=== PATIENT | male | born 1960 | race Caucasian/White ===

== ENCOUNTER 2018-12-31 21:03 | Emergency (ER) | payer OTHER ==
[2018-12-31 21:23] VITALS: BP 110/70; PULSE 82; TEMP 98.8; BMI 24.3
--- NOTE | 2018-12-31 22:01 | PDOC ---
History of Present Illness - General History Source: Patient Exam Limitations: Intoxication - History of Present Illness Initial Comments: 12/31/18 21:38 58M with unknown PMH presents to the ER intoxicated. Pt admits to head trauma but denies drinking. However, he admits to drinking daily. Denies any acute complaints. <Morris Davis - Last Filed: 12/31/18 23:34> <Fredi Waggoner - Last Filed: 01/01/19 00:11> - General Chief Complaint: Alcohol intoxication Stated Complaint: INTOX Time Seen by Provider: 12/31/18 21:20 Past History - Suicide/Smoking/Psychosocial Hx Smoking History: Never smoked Have you smoked in the past 12 months: No Information on smoking cessation initiated: No Hx Alcohol Use: Yes Drug/Substance Use Hx: No <Morris Davis - Last Filed: 12/31/18 23:34> <Fredi Waggoner - Last Filed: 01/01/19 00:11> - Past Medical History Allergies/Adverse Reactions: Allergies Allergy/AdvReac Type Severity Reaction Status Date / Time No Allergy Information Allergy Verified 12/31/18 21:23 Available Home Medications: Ambulatory Orders Unobtainable 12/31/18 Review of Systems - Review of Systems Able to Perform ROS?: No (intox) Is the patient limited Sami proficient: No <Morris Davis - Last Filed: 12/31/18 23:34> *Physical Exam - Vital Signs Last Vital Signs Temp Pulse Resp BP Pulse Ox 98.8 F 82 18 110/70 97 12/31/18 21:03 12/31/18 21:03 12/31/18 21:03 12/31/18 21:03 12/31/18 21:03 - Physical Exam Comments: 12/31/18 21:39 GENERAL: Well developed, well nourished. Asleep but arousable. No acute distress. EtOH on breath. Disheveled. HEENT: Normocephalic, abrasion over forehead. Hearing grossly normal. Moist mucous membranes. PERRLA, EOMI. No conjunctival pallor. Sclera are non-icteric. NECK: Supple. Full ROM. No JVD. CARDIOVASCULAR: Regular rate and rhythm. No murmurs, rubs, or gallops. PULMONARY: No evidence of respiratory distress. Lungs clear to auscultation bilaterally. No wheezing, rales or rhonchi. ABDOMINAL: Soft. Non-tender. Non-distended. No rebound or guarding. MUSCULOSKELETAL: Normal range of motion at all joints. No bony deformities or tenderness. EXTREMITIES: No cyanosis. No clubbing. No edema. No calf tenderness or swelling. SKIN: Warm and dry. Normal capillary refill. No rashes. No jaundice. NEUROLOGICAL: Asleep but arousable. Cranial nerves 2-12 grossly intact. Normal speech. PSYCHIATRIC: Cooperative when awoken to vocal or tactica stimuli. Poor eye contact. <Morris Davis - Last Filed: 12/31/18 23:34> - Vital Signs Last Vital Signs Temp Pulse Resp BP Pulse Ox 98.8 F 82 18 110/70 97 12/31/18 21:03 12/31/18 21:03 12/31/18 21:03 12/31/18 21:03 12/31/18 21:03 <Fredi Waggoner - Last Filed: 01/01/19 00:11> ED Treatment Course - LABORATORY CBC & Chemistry Diagram: 12/31/18 22:10 12/31/18 22:10 - RADIOLOGY Radiology Studies Ordered: Category Date Time Status CERVICAL SPINE CT W/O CONTR [CT] Stat CT Scan 12/31/18 21:[address] WITHOUT CONTRAST [CT] Stat CT Scan 12/31/18 21:26 Ordered <Morris Davis - Last Filed: 12/31/18 23:34> - LABORATORY CBC & Chemistry Diagram: 12/31/18 22:10 12/31/18 22:10 - ADDITIONAL ORDERS Additional order review: Laboratory Results 12/31/18 22:10 Sodium 141 Potassium 3.5 Chloride 108 H Carbon Dioxide 26 Anion Gap 7 L BUN 10 Creatinine 0.5 L Creat Clearance w eGFR 169.62 Random Glucose 118 H Calcium 8.3 L Total Bilirubin 0.3 AST 47 H ALT 32 Alkaline Phosphatase 83 Creatine Kinase 214 Creatine Kinase Index 4.1 CK-MB (CK-2) 8.9 H Troponin I < 0.02 Total Protein 5.9 L Albumin 2.8 L Alcohol, Quantitative 215.8 H 12/31/18 22:10 RBC 4.11 MCV 98.9 H MCHC 33.4 RDW 14.9 MPV 7.3 L Neutrophils % 56.6 Lymphocytes % 28.5 Monocytes % 10.5 H Eosinophils % 3.5 Basophils % 0.9 <Fredi Waggoner - Last Filed: 01/01/19 00:11> Medical Decision Making - Medical Decision Making 12/31/18 22:01 58M with unknown PMH found by bus stop by EMS and brought into our ED. The patient has never been to our ED. PE shows abrasion over forehead and pt admits to falling. Will r/o bleed/fracture with CT head and c-spine. Because he is new to our facility, will order bloodwork and EKG. Pending labs and imaging. Pt is asleep and comfortable. 12/31/18 23:22 CTH and c-spine negative. Trop negative. EtOH level 215. Pt asleep comfortably. 12/31/18 23:59 Pt signed out to Dr. Casey for further evaluation. <Morris Davis - Last Filed: 12/31/18 23:34> *DC/Admit/Observation/Transfer <Morris Davis - Last Filed: 12/31/18 23:34> <Fredi Waggoner - Last Filed: 01/01/19 00:11> Diagnosis at time of Disposition: Alcohol intoxication - Discharge Dispostion Disposition: ELOPED Condition at time of disposition: Fair
[2018-12-31 22:38] LABS: BASO % 0.9 % (0-2.0); EOS % 3.5 % (0-4.5); HEMATOCRIT 40.7 % (35.4-49); HEMOGLOBIN 13.6 GM/dL (11.7-16.9); LYMPH % 28.5 % (8-40); MCH 33.1 pg (25.7-33.7); MCHC 33.4 g/dl (32.0-35.9); MEAN CELL VOLUME 98.9 fl (80-96); MEAN PLT VOLUME 7.3 fl (7.5-11.1); MONO % 10.5 % (3.8-10.2); NEUT % 56.6 % (42.8-82.8); PLATELET COUNT 206 K/MM3 (134-434); RBC 4.11 M/mm3 (4.00-5.60); RDW 14.9 % (11.9-15.9); WHITE BLOOD COUNT 5.8 K/mm3 (4.0-10.0)
[2018-12-31 22:50] LABS: ALBUMIN 2.8 g/dl (3.4-5.0); ALK PHOS 83 U/L (45-117); ANION GAP 7 MMOL/L (8-16); BILIRUBIN,TOTAL 0.3 mg/dL (0.2-1); BLOOD UREA NITROGEN 10 mg/dL (7-18); CALCIUM 8.3 mg/dL (8.5-10.1); CHLORIDE 108 mmol/L (98-107); CO2 26 mmol/L (21-32); CREATININE 0.5 mg/dL (0.55-1.3); GLUCOSE,RANDOM 118 mg/dL (74-106); POTASSIUM 3.5 mmol/L (3.5-5.1); SGOT/AST 47 U/L (15-37); SGPT/ALT 32 U/L (13-61); SODIUM 141 mmol/L (136-145); TOT PROT 5.9 g/dl (6.4-8.2)
--- NOTE | 2019-01-01 00:11 | PDOC ---
Documentation entered by Becki Colon SCRIBE, acting as scribe for Dena Ames MD. Dena Ames MD: This documentation has been prepared by the Darlene gonzalez Daisy, SCRIBE, under my direction and personally reviewed by me in its entirety. I confirm that the documentation accurately reflects all work, treatment, procedures, and medical decision making performed by me. Attending Attestation - Resident Resident Name: Morris Davis - ED Attending Attestation I have performed the following: I have examined & evaluated the patient, The case was reviewed & discussed with the resident, I agree w/resident's findings & plan - HPI HPI: 12/31/18 21:34 Patient is a 58YOM who presents to the ER s/p fall. Patient reports head trauma and small abrasion. - Physicial Exam PE: 12/31/18 23:40 Agree with resident's exam. - Medical Decision Making 12/31/18 23:59 this 58 yo male was BIBA after being found at the bus stop intoxicated. Pt is unable to give history ct scan head no acute intracranial pathology,no mass,no infarct,no bleed, no skull fracture ct scan c spine ; no fracture,no subluxation 01/01/19 00:01 troponin is negative ekg nsr @ 64 bpm cbc unremarkable chemistries -normal renal function, normal t bili etoh level 215, pt is currently sleeping plan when pt is more alert will discharge 01/01/19 00:10 pt eloped
--- NOTE | 2019-01-01 14:35 | EKG ---
Test Reason : Blood Pressure : / mmHG Vent. Rate : 060 BPM Atrial Rate : 060 BPM P-R Int : 164 ms QRS Dur : 114 ms QT Int : 422 ms P-R-T Axes : 056 -69 053 degrees QTc Int : 422 ms NORMAL SINUS RHYTHM LEFT ANTERIOR FASCICULAR BLOCK ANTEROSEPTAL INFARCT , AGE UNDETERMINED VOLTAGE CRITERIA FOR LEFT VENTRICULAR HYPERTROPHY ABNORMAL ECG NO PREVIOUS ECGS AVAILABLE Confirmed by MD JOANN, NKECHI ([id number]) on 01/01/2019 2:34:45 PM Referred By: Confirmed By:NKECHI DAVID MD
== END 2018-12-31 23:45 | disposition left against medical advice (07) ==
LOC: JER 21:03
DX: F10.120 Alcohol abuse with intoxication, uncomplicated (principal); Y90.7 Blood alcohol level of 200-239 mg/100 ml; S00.81XA Abrasion of other part of head, initial encounter; W18.39XA Other fall on same level, initial encounter; Y93.89 Activity, other specified; Y92.488 Other paved roadways as the place of occurrence of the external cause; Y99.8 Other external cause status
CPT/HCPCS: 36415; 70450-TC; 72125-TC; 80053; 80307; 82550; 82553; 84484; 85025; 93005; 93010; 99282-25

== ENCOUNTER 2019-01-01 11:47 | Emergency (ER) | payer SELFPAY ==
[2019-01-01 11:53] VITALS: BP 120/80; PULSE 85; TEMP 98.1; BMI 23.0
[2019-01-01] MEDS ORDERED: chlordiazePOXIDE HCL 25 MG CAPSULE PO ONE (12:11)
[2019-01-01] MEDS ORDERED: chlordiazePOXIDE HCL 25 MG CAPSULE ONE (12:28)
[2019-01-01 12:46] LABS: BASO % 0.9 % (0-2.0); EOS % 2.6 % (0-4.5); HEMATOCRIT 41.6 % (35.4-49); HEMOGLOBIN 13.7 GM/dL (11.7-16.9); LYMPH % 17.9 % (8-40); MCH 32.6 pg (25.7-33.7); MEAN CELL VOLUME 98.8 fl (80-96); MEAN PLT VOLUME 7.4 fl (7.5-11.1); MONO % 10.6 % (3.8-10.2); PLATELET COUNT 218 K/MM3 (134-434); RBC 4.21 M/mm3 (4.00-5.60); WHITE BLOOD COUNT 6.3 K/mm3 (4.0-10.0)
[2019-01-01 12:54] LABS: URINE APPEARANCE CLEAR; URINE BILIRUBIN NEGATIVE (NEGATIVE); URINE COLOR YELLOW; URINE GLUCOSE (UA) NEGATIVE (NEGATIVE); URINE KETONE NEGATIVE (NEGATIVE); URINE LEUK ESTERASE NEGATIVE (NEGATIVE); URINE NITRITE NEGATIVE (NEGATIVE); URINE PROTEIN NEGATIVE (NEGATIVE)
[2019-01-01 13:13] LABS: ALBUMIN 3.1 g/dl (3.4-5.0); ALK PHOS 87 U/L (45-117); ANION GAP 12 MMOL/L (8-16); BILIRUBIN,TOTAL 0.4 mg/dL (0.2-1); BLOOD UREA NITROGEN 13 mg/dL (7-18); CALCIUM 8.6 mg/dL (8.5-10.1); CHLORIDE 104 mmol/L (98-107); CO2 27 mmol/L (21-32); CREATININE 0.6 mg/dL (0.55-1.3); GLUCOSE,RANDOM 79 mg/dL (74-106); POTASSIUM 3.9 mmol/L (3.5-5.1); SGOT/AST 46 U/L (15-37); SGPT/ALT 33 U/L (13-61); SODIUM 143 mmol/L (136-145); TOT PROT 6.3 g/dl (6.4-8.2)
[2019-01-01 13:22] LABS: COCAINE, UR NEGATIVE ng/ml (CUTOFF=300); METHADONE, UR NEGATIVE ng/ml (CUTOFF=300); OPIATES, URI NEGATIVE ng/ml (CUTOFF=300); PHENCYCLIDINE,URINE NEGATIVE ng/ml (CUTOFF=25); URINE AMPHETAMINES NEGATIVE ng/ml (CUTOFF=500); URINE BARBITURATES NEGATIVE ng/ml (CUTOFF=200)
[2019-01-01 13:34] LABS: URINE BENZODIAZEPINES POSITIVE ng/ml (CUTOFF=200)
--- NOTE | 2019-01-01 13:35 | PDOC ---
Documentation entered by Dorothea Jean Baptiste SCRIBE, acting as scribe for Vinny Palacios MD. Vinny Palacios MD: This documentation has been prepared by the Markel gonzalez Amanda, SCRIBE, under my direction and personally reviewed by me in its entirety. I confirm that the documentation accurately reflects all work, treatment, procedures, and medical decision making performed by me. History of Present Illness - General Chief Complaint: Alcohol intoxication Stated Complaint: INTOX Time Seen by Provider: 01/01/19 12:02 History Source: Patient Exam Limitations: No Limitations, Intoxication - History of Present Illness Initial Comments: 01/01/19 12:10 The patient is a 58 year old male, with a significant history of ETOH abuse and withdrawal seizures in the past, who presents to the ED via ems after the police found him intoxicated on the ground in [place]. The patient reports his last ETOH intake was yesterday. He reports a sever headache at this time and admits to falling down with head trauma. He states he is interested in ETOH detox. He states he has experienced seizures from ETOH withdrawal in the past. He reports requiring hospital stays in the past. He denies weakness, numbness, tingling. The patient denies nausea, vomiting, abdominal pain, diarrhea. The patient denies having tremors at this time. The patient denies changes to his vision. He denies dizziness. The patient denies CP , SOB, palpitations. Past History - Past Medical History Allergies/Adverse Reactions: Allergies Allergy/AdvReac Type Severity Reaction Status Date / Time No Allergy Information Allergy Verified 12/31/18 21:23 Available Home Medications: Ambulatory Orders NK [No Known Home Medication] 01/01/19 COPD: No Other medical history: DENIES - Immunization History Immunization Up to Date: No - Suicide/Smoking/Psychosocial Hx Smoking History: Current every day smoker Have you smoked in the past 12 months: No Information on smoking cessation initiated: No Hx Alcohol Use: Yes (TODAY) Drug/Substance Use Hx: No Review of Systems - Review of Systems Able to Perform ROS?: Yes Comments:: 01/01/19 12:14 Constitutional: No recent illness; no fever ENT: No sore throat Cardiovascular: No palpitations; no chest pain Pulmonary: No cough; no trouble breathing Gastrointestinal: No nausea; no vomiting; no diarrhea Genitourinary: No urinary problems; no hematuria Skin: No rash Lymph system: No swollen glands Musculoskeletal: No joint swelling Neurological: (+) Headache. No weakness; oo numbness; no vertigo; no lightheadedness Psychiatric:No anxiety; no depression *Physical Exam - Vital Signs Last Vital Signs Temp Pulse Resp BP Pulse Ox 98.1 F 85 18 120/80 98 01/01/19 11:50 01/01/19 11:50 01/01/19 11:50 01/01/19 11:50 01/01/19 11:50 - Physical Exam Comments: 01/01/19 12:15 Vitals: Triage vital signs reviewed General Appearance: (+) ETOH on breath. Intoxicated. Unkept. No acute distress, Head: (+) forehead abrasion. superior scalp abrasion. Eyes: Pupils equal reactive round, extraocular movement intact Ears: TM's normal bilaterally Nose: Nares patent bilaterally; no nasal congestion Throat: Posterior oropharynx without erythema, mucous membranes moist Neck: Supple; No nuchal rigidity Chest Wall: Nontender Cardiac: Regular rate and rhythm, no murmurs, no rubs, no gallops Lungs: Clear to auscultation bilateral, good air movement bilaterally Abdomen: Soft, nondistended, normal bowel sounds, nontender to palpation Extremities: Full range of motion to all extremities, no cyanosis, clubbing, or edema Skin: Warm and dry, no rashes or lesions, no rash, no petechiae Neuro: (+) mild tremor. Mild tongue fasciculation. AOX3; Cranial Nerves 2-12 grossly intact, Strength intact to all extremities, Sensation intact to all extremities, Psych: Normal mood, normal affect Calculated CIWA score of ~12 ED Treatment Course - LABORATORY CBC & Chemistry Diagram: 01/01/19 12:28 01/01/19 12:28 Medical Decision Making - Medical Decision Making 01/01/19 13:35 CIWA score [address] negative for acute pathology Laboratory analysis within normal limits Patient interested in detox Case d/w Dr. Bazan from [facility] We'll discharge from the emergency department have patient transferred to [facility] for detox. Patient amenable to detox. *DC/Admit/Observation/Transfer Diagnosis at time of Disposition: Alcohol withdrawal Qualifiers: Complication of substance-induced condition: uncomplicated Qualified Code(s): F10.230 - Alcohol dependence with withdrawal, uncomplicated - Discharge Dispostion Disposition: TRANSFER ACUTE CARE/OTHER HOSP Decision to Admit order: No - Referrals Referrals: [facility] [Provider Group] - Patient Instructions Printed Discharge Instructions: DI for Alcohol Abuse Additional Instructions: Proceed to [facility] for detox Follow-up with the [facility] for medical care when your done. - Post Discharge Activity
== END 2019-01-01 14:14 | disposition short-term general hospital (02) ==
LOC: JER 11:47
DX: F10.230 Alcohol dependence with withdrawal, uncomplicated (principal); S09.8XXA Other specified injuries of head, initial encounter; S00.81XA Abrasion of other part of head, initial encounter; W18.39XA Other fall on same level, initial encounter; Y93.89 Activity, other specified; Y92.89 Other specified places as the place of occurrence of the external cause; Y99.8 Other external cause status
CPT/HCPCS: 36415; 70450-TC; 80053; 80307; 81003; 82550; 82553; 83735; 85025; 99283-25

== ENCOUNTER 2019-01-02 02:21 | Emergency (ER) | payer SELFPAY ==
[2019-01-02 02:31] VITALS: BP 114/79; PULSE 74; TEMP 98.8; BMI 28.5
--- NOTE | 2019-01-02 05:25 | PDOC ---
*Physical Exam - Vital Signs Last Vital Signs Temp Pulse Resp BP Pulse Ox 98.8 F 74 18 114/79 98 01/02/19 02:21 01/02/19 02:21 01/02/19 02:21 01/02/19 02:21 01/02/19 02:21 Medical Decision Making - Medical Decision Making 01/02/19 05:23 Patient seen by the advanced practice provider under my direct supervision. Ancillary testing reviewed as necessary. I agree with plan as outlined by the advanced practice provider. *DC/Admit/Observation/Transfer Diagnosis at time of Disposition: Alcohol abuse - Discharge Dispostion Condition at time of disposition: Fair - Referrals - Patient Instructions - Post Discharge Activity
--- NOTE | 2019-01-02 05:45 | PDOC ---
History of Present Illness - General Chief Complaint: Alcohol intoxication Stated Complaint: E.T.O.H. Time Seen by Provider: 01/02/19 05:17 History Source: Patient - History of Present Illness Initial Comments: 01/02/19 05:53 58-year-old undomiciled disheveled male brought in by ambulance found wandering in the street after EtOH abuse. Patient also had similar visit last night for EtOH abuse. Patient has no visible signs of trauma to face or head. Past History - Past Medical History Allergies/Adverse Reactions: Allergies Allergy/AdvReac Type Severity Reaction Status Date / Time No Allergy Information Allergy Verified 01/02/19 02:29 Available Home Medications: Ambulatory Orders NK [No Known Home Medication] 01/01/19 COPD: No - Immunization History Immunization Up to Date: No - Suicide/Smoking/Psychosocial Hx Smoking History: Current some day smoker Have you smoked in the past 12 months: Yes Number of Cigarettes Smoked Daily: 10 Information on smoking cessation initiated: No Hx Alcohol Use: Yes (Daily) Drug/Substance Use Hx: No Review of Systems - Review of Systems Able to Perform ROS?: Yes Is the patient limited Welsh proficient: No Constitutional: No: Symptoms Reported, See HPI, Chills, Diaphoresis, Fever, Loss of Appetite, Malaise, Night Sweats, Weakness, Weight Stable, Unintentional Wgt. Loss, Unexplained wgt Loss, Other Integumentary: Yes: Pruritus, Other (healing abrasions to forehead no sign of trauma to head) *Physical Exam - Vital Signs Last Vital Signs Temp Pulse Resp BP Pulse Ox 98.8 F 74 18 114/79 98 01/02/19 02:21 01/02/19 02:21 01/02/19 02:21 01/02/19 02:21 01/02/19 02:21 - Physical Exam General Appearance: Yes: Disheveled, Alcohol on Breath Extremity: positive: Normal Capillary Refill, Normal Inspection Integumentary: positive: Dry, Warm Neurologic: positive: Alert (answering questions) Medical Decision Making - Medical Decision Making 01/02/19 06:29 A: alcohol abuse P: will d/c when sober 01/02/19 0700 patient signed out to Shae LUEVANO *DC/Admit/Observation/Transfer Diagnosis at time of Disposition: Alcohol abuse - Discharge Dispostion Condition at time of disposition: Fair - Referrals - Patient Instructions - Post Discharge Activity
--- NOTE | 2019-01-02 07:41 | PDOC ---
*Physical Exam - Vital Signs Last Vital Signs Temp Pulse Resp BP Pulse Ox 98.8 F 74 18 114/79 98 01/02/19 02:21 01/02/19 02:21 01/02/19 02:21 01/02/19 02:21 01/02/19 02:21 Medical Decision Making - Medical Decision Making 01/02/19 07:18 Patient received in signout from BASSEM Ames. Patient here with alcohol intoxication. Patient currently resting and will discharge once able to ambulate safely. 01/02/19 08:33 Pt unable to be located in the ED , hallways, or bathroom. Pt will be considered an elopement *DC/Admit/Observation/Transfer Diagnosis at time of Disposition: Alcohol abuse - Discharge Dispostion Disposition: ELOPED Condition at time of disposition: Fair - Referrals - Patient Instructions - Post Discharge Activity
== END 2019-01-02 08:01 | disposition home or self-care (01) ==
LOC: JER 02:21
DX: F10.10 Alcohol abuse, uncomplicated (principal); F17.210 Nicotine dependence, cigarettes, uncomplicated
CPT/HCPCS: 99281-25

== ENCOUNTER 2021-08-07 20:12 | Emergency (ER) | payer OTHER ==
[2021-08-07 20:46] VITALS: BMI 25.7
[2021-08-08 06:07] VITALS: BP 134/82; PULSE 69; TEMP 98.3
== END 2021-08-08 06:53 ==
LOC: JER 20:12
DX: F10.920 Alcohol use, unspecified with intoxication, uncomplicated (principal)
CPT/HCPCS: 99281-25